=== PATIENT | female | born 1980 | race Caucasian/White ===

== ENCOUNTER → 2017-05-26 | Outpatient (CLI) | payer OTHER ==
[~2017-05-26] MED LIST: B-COMPLEX 100 I30 ML IM; BACTRIM DS TAB1 EACH PO; BYSTOLIC 5 MG5 M1 PO; CELEXA20 MG PO; CLARITIN10 MG PO; CYMBALTA60 MG PO; FLEXERIL PO; HARD NAILS2500 MCG PO; HYDROCHLORTHIAZIDE PO; HYDROCODON-ACE1 EA12 PO; HYDROCODON-ACE1 EAC5 PO; HYDROCODONE-AP1 EAC6 PO; HYDROCODONE-APA1 TA1 PO; LEVAQUIN 500 M500 M2 PO; MEDROLDOSEPACK PO; NABUMETONE 750750 M1 PO; PERCOCET 5-3251 EACH PO; PERCOCET PO; PHENTERMINE H37.5 MG PO; PROTONIX40 M4 PO; TOPAMAX50 MG PO; TRAZODONE HCL100 MG PO; VITAMIN E400 UNI2 PO; ZESTORETIC 20-1 EAC3 PO
--- NOTE | 2017-05-28 08:15 | PAINCON ---
[facility] [address] [place] [address] PAIN MANAGEMENT CONSULTATION Name: RUBIO MATHIAS Room: [facility].#: [id number] Admission: 05/26/17 Attend Phys: Sonia Latham Discharge: Date of : 80 Report #: [id number] THIS REPORT FOR: //name// CC: Alexandra Bhandari The patient is a very pleasant 37-year-old female being treated for chronic SI pain, lumbosacral spondylosis, axial low back pain requiring high risk complex medication management. Last seen in the pain clinic, 03/31/2017. Continued on baseline medication including Percocet 5/325 up to 4 a day. Buccal drug swab at that time was positive for prescribed medications and no others. She returns to pain clinic today. Last visit, I suggested she stop doing the elliptical exercises and start using more treadmill. She was seen to be exacerbating her SI mediated pain with the elliptical motion. Returns to pain clinic today, noting she grudgingly took my advice. After several days, she did note that the elliptical was exacerbating her SI pain. She has continued with the treadmill. She returns to pain clinic today, noting medications generally providing sufficient analgesia to participate in activities of daily living. Continuing ongoing pain that she rates 7 on a VAS, primarily right hip and leg. Otherwise, doing reasonably well on current medication. Does not use tobacco products. PHYSICAL EXAMINATION: GENERAL: She is 5 feet 7 inches, 282 pounds female, BMI elevated at 41.6. VITAL SIGNS: Blood pressure modestly elevated at 144/92, pulse 83, respirations 18. MUSCULOSKELETAL: Rises from chair using armrest. Gait is tandem, some diffuse tenderness over the SI joints. Lower extremity strength symmetric, but she has some subjective weakness in the right leg, I cannot discern this. We reviewed the fact that opiate medications are being used to provide analgesia adequate to support activities of daily living, not attempting to achieve a specific pain score on the 0-10 Visual Analog Scale. The current opiate medications are providing sufficient analgesia to allow the patient to participate in activities of daily living. The patient is not exhibiting any aberrant behavior suggestive of drug diversion. The patient is not having any adverse reactions to medications. The patient is not suffering from daytime somnolence or mental acuity changes. The patient is managing opiate-induced constipation with appropriate wtly-iff-nhzxebo agents and dietary considerations. The patient was counseled on concern for caution with operating a motor vehicle while using opiate medications. A physical exam was performed and the patient's functional status was evaluated. All patients with back pain were advised against the bed rest greater than [address] [place] [address] PAIN MANAGEMENT CONSULTATION Name: RUBIO MATHIAS Room: [facility] MUNA Azevedo#: [id number] Admission: 05/26/17 Attend Phys: Sonia Latham Discharge: Date of : 80 Report #: [id number] days and were advised to return to normal activities. Pain score assessment was noted and the treatment plan was reviewed with the patient. All current medications, both prescribed and OTC were reviewed and reconciled on the electronic medical record. Tobacco screening was accomplished and smoking cessation was advised when indicated. BMI was noted and diet/exercise modification was recommended for all patients following outside normal parameters. I reviewed with the patient today their responsibilities to safeguard prescription medications, reviewed their responsibility to utilize medications only as prescribed by the physician. They are to seek and receive pain medications only from 1 physician group ( [facility]). They are to use 1 pharmacy and keep the clinic informed if they change pharmacies. Their responsibilities include making followup visits in a timely fashion and to avoid abrupt discontinuation of medication usage. Their responsibilities further include bringing their medications (bottles from the pharmacy with residual pills) to the visit for possible confirmation of pill counts and the patient understands it is their responsibility to submit to random drug screens to ensure both that the medications prescribed are present, and that no other controlled substances are present. All prescriptions provided today were generated electronically. ASSESSMENT: Chronic axial low back pain, lumbosacral spondylosis, sacroiliac joint mediated pain requiring high risk complex medication management for her axial low back pain. RECOMMENDATION: Continue Percocet 5/325 up to 4 a day, taken the liberty of writing for 2 months of current medication. <ELECTRONICALLY SIGNED> By: Regan Bhandari DO 05/28/17 0815 0835 [id number] Bhandari DO /nt
== END ==
LOC: M.PC 02:00
DX: M47.897 Other spondylosis, lumbosacral region (principal); M53.3 Sacrococcygeal disorders, not elsewhere classified; Z79.899 Other long term (current) drug therapy

== ENCOUNTER → 2017-07-21 | Outpatient (CLI) | payer OTHER ==
--- NOTE | 2017-07-22 10:21 | PAINCON ---
[facility] [address] [place] [address] PAIN MANAGEMENT CONSULTATION Name: RUBIO MATHIAS Room: [facility].#: [id number] Admission: 07/21/17 Attend Phys: Sonia Latham Discharge: Date of : 80 Report #: [id number] THIS REPORT FOR: //name// CC: Alexandra Bhandari The patient is a very pleasant 37-year-old female, being treated for chronic SI mediated pain, lumbosacral spondylosis without myelopathy nor radiculopathy, requiring complex medication management. Last seen in the pain clinic 05/26/2017. Continued on Percocet 5/325 up to 4 a day. The patient is doing well with this current medication. Enable her to participate in activities of daily living. She works 40 hours a week. She has a [employer] job, working in subsidized housing. Unfortunately, she has had to do a lot of overtime recently, though she does tell me they have employed some new hires and she may get back to normal 40-hour a week. She has continued with a treadmill activity for core strengthening and states that this is helpful, again; however, with the increasing work and overtime, she has had a little less time for physical therapy. Today, we did talk about axial back pain, lumbosacral spondylosis exacerbated with prolonged sitting. The patient may do well with an ergonomic desk (an adjustable height workstation). I did write a prescription for same. She tells me that her HR department has told her that they will be happy to provide her with this if we can provide a prescription which I think is incredibly reasonable. We reviewed the fact that opiate medications are being used to provide analgesia adequate to support activities of daily living, not attempting to achieve a specific pain score on the 0-10 Visual Analog Scale. The current opiate medications are providing sufficient analgesia to allow the patient to participate in activities of daily living. The patient is not exhibiting any aberrant behavior suggestive of drug diversion. The patient is not having any adverse reactions to medications. The patient is not suffering from daytime somnolence or mental acuity changes. The patient is managing opiate-induced constipation with appropriate vwmq-nne-pebplhq agents and dietary considerations. The patient was counseled on concern for caution with operating a motor vehicle while using opiate medications. A physical exam was performed and the patient's functional status was evaluated. All patients with back pain were advised against the bed rest greater than 4 days and were advised to return to normal activities. Pain score assessment was noted and the treatment plan was reviewed with the patient. All current medications, both prescribed and OTC were reviewed and reconciled on the electronic medical record. Tobacco screening was accomplished and smoking cessation was advised when indicated. BMI was noted and diet/[place] [address] PAIN MANAGEMENT CONSULTATION Name: STEWRUBIO FORTUNATO Room: [facility] MUNA Azevedo#: [id number] Admission: 07/21/17 Attend Phys: Sonia Latham Discharge: Date of : 80 Report #: [id number] modification was recommended for all patients following outside normal parameters. I reviewed with the patient today their responsibilities to safeguard prescription medications, reviewed their responsibility to utilize medications only as prescribed by the physician. They are to seek and receive pain medications only from 1 physician group ( [facility]). They are to use 1 pharmacy and keep the clinic informed if they change pharmacies. Their responsibilities include making followup visits in a timely fashion and to avoid abrupt discontinuation of medication usage. Their responsibilities further include bringing their medications (bottles from the pharmacy with residual pills) to the visit for possible confirmation of pill counts and the patient understands it is their responsibility to submit to random drug screens to ensure both that the medications prescribed are present, and that no other controlled substances are present. All prescriptions provided today were generated electronically. PHYSICAL EXAMINATION: Shows a pleasant 37-year-old female. Vital signs are stable as noted in the chart, blood pressure modestly elevated 146/105, pulse 83, and respirations 16. She is following with her general farmer physician this afternoon. She recently bought a new wrist blood pressure monitor. I suggested she take it with her to her general farmer physician's office to get it calibrated. Nonetheless, medication list was reconciled today, the patient takes Bystolic for blood pressure. Suggest that she discuss transient hypertension with her physician today. Modestly obese, 5 feet 9 inches, 280 pounds, BMI is 41 kg/m2. Otherwise, the patient rises from chair using armrest. Diffuse tenderness across the low back. Lower extremity strength is preserved. No radicular symptoms are noted. ASSESSMENT: Lumbosacral spondylosis without myelopathy nor radiculopathy (M47.817), chronic pain syndrome requiring complex medication management. RECOMMENDATION: Continue Percocet 5/325 up to 4 a day. I have taken the liberty of writing for 2 months of current medication. Again, work station considerations for ergonomic desk generated today. Reviewing the chart, it appears it has been greater than 1 year since our last random drug screen, we will make a note in the chart to get a random buccal swab at next visit. Discharged in good and stable condition. <ELECTRONICALLY SIGNED> By: Regan Bhandari DO 07/22/17 1021 0821 [id number] Bhand[facility] DO /lavenre
== END ==
LOC: M.PC 03:33
DX: M47.817 Spondylosis without myelopathy or radiculopathy, lumbosacral region (principal); Z79.899 Other long term (current) drug therapy

== ENCOUNTER → 2017-09-15 | Outpatient (CLI) | payer OTHER ==
--- NOTE | 2017-09-16 09:37 | PAINCON ---
[facility] [address] [place] [address] PAIN MANAGEMENT CONSULTATION Name: NOVA MATHIASANDA FORTUNATO Room: [facility].#: [id number] Admission: 09/15/17 Attend Phys: Sonia Latham Discharge: Date of : 80 Report #: [id number] THIS REPORT FOR: //name// CC: Alexandra Bhandari This is a very pleasant 37-year-old female being treated for chronic SI pain, lumbosacral spondylosis, requiring complex medication management. Last seen in the pain clinic on 07/21/2017. Continued on Percocet 5/325 four a day and occasional Flexeril for spasm. 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 Through attrition, they had lost several employees and she was working 50-60 hours. Fortunately, she tells me today they have hired more employees and she is now back to working 40 hours a week. She did get an ergonomic desk and tells me she spends a good deal of time standing at work. This has been efficacious for her low back. She has resumed some treadmill exercises and overall is doing well. She does not use tobacco products. Physical exam is relatively unchanged from last visit. Very pleasant 37-year-old female, 5 feet 9 inches, 280 pounds, BMI is 42.9 kilograms per meter squared. Blood pressure is 133/85, pulse 86 and respirations are 18. Subjective pain score ranges anywhere from a 2 to 7 on a VAS. It is 3/10 today. The patient rises from chair easily. Gait is tandem. Lower extremity strength is preserved. Diffuse tenderness across the low back. Lizzy and Gaenslen's test deferred today. They have classically been positive. We reviewed the fact that opiate medications are being used to provide analgesia adequate to support activities of daily living, not attempting to achieve a specific pain score on the 0-10 Visual Analog Scale. The current opiate medications are providing sufficient analgesia to allow the patient to participate in activities of daily living. The patient is not exhibiting any aberrant behavior suggestive of drug diversion. The patient is not having any adverse reactions to medications. The patient is not suffering from daytime somnolence or mental acuity changes. The patient is managing opiate-induced constipation with appropriate dgii-que-bjvuftn agents and dietary considerations. The patient was counseled on concern for caution with operating a motor vehicle while using opiate medications. A physical exam was performed and the patient's functional status was evaluated. All patients with back pain were advised against the bed rest greater than 4 days and were advised to return to normal activities. Pain score assessment was noted and the treatment plan was reviewed with the patient. All current medications, both prescribed and OTC [place] [address] PAIN MANAGEMENT CONSULTATION Name: STEWRUBIO FORTUNATO Room: [facility] MUNA Azevedo#: [id number] Admission: 09/15/17 Attend Phys: Sonia Latham Discharge: Date of : 80 Report #: [id number] electronic medical record. Tobacco screening was accomplished and smoking cessation was advised when indicated. BMI was noted and diet/exercise modification was recommended for all patients following outside normal parameters. I reviewed with the patient today their responsibilities to safeguard prescription medications, reviewed their responsibility to utilize medications only as prescribed by the physician. They are to seek and receive pain medications only from 1 physician group ( [facility]). They are to use 1 pharmacy and keep the clinic informed if they change pharmacies. Their responsibilities include making followup visits in a timely fashion and to avoid abrupt discontinuation of medication usage. Their responsibilities further include bringing their medications (bottles from the pharmacy with residual pills) to the visit for possible confirmation of pill counts and the patient understands it is their responsibility to submit to random drug screens to ensure both that the medications prescribed are present, and that no other controlled substances are present. All prescriptions provided today were generated electronically. ASSESSMENT: Chronic axial back pain, lumbar spondylosis, SI mediated pain, complex medication management. The patient has been remarkably stable on baseline medication. We have done multiple SI joint injections for exacerbation of pain. Had referred the patient for SI percutaneous fusion. This was denied by her insurance company. We had sought authorization for radiofrequency neurolysis innervating the SI joint, this too was denied by her insurance payer. RECOMMENDATION: Continue Percocet 5/325 up to 4 a day, taken the liberty of writing for 2 months of current medication. We will repeat a buccal random drug swab today. No aberrant behavior suggestive of drug diversion, simply complying with our opiate consent to treat contract. Prior studies have always been positive for prescribed medications and no others. Next, we will renew Flexeril today. I will write for 10 mg tablet b.i.d., 60 tablets with 1 refill. She uses this on a nondaily p.r.n. basis. Continue core therapy treadmill exercises and core strengthening. Continue use of ergonomic desk. Follow up in 2 months for reevaluation. We did discuss that I will be leaving the practice and we will endeavor to find another prescribing physician. Again, the patient has always been timely on her medications and not sought any early refills. 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 She has eschewed nicotine products, escalation in opiate analgesics. She has continued with exercise, core strengthening and endeavors to mitigate pain. <ELECTRONICALLY SIGNED> By: Regan Bhandari DO 09/16/17 0937 0824 [id number] Bhandari DO /nt
== END ==
LOC: M.PC 04:34
DX: M47.897 Other spondylosis, lumbosacral region (principal); G89.29 Other chronic pain; Z79.899 Other long term (current) drug therapy

== ENCOUNTER → 2017-11-10 | Outpatient (CLI) | payer OTHER ==
--- NOTE | 2017-11-11 07:56 | PAINCON ---
[address] [address] PAIN MANAGEMENT CONSULTATION Name: STEWRUBIO FORTUNATO Room: [facility].#: [id number] Admission: 11/10/17 Attend Phys: oSnia Latham Discharge: Date of : 80 Report #: [id number] THIS REPORT FOR: //name// CC: Alexandra Bhandari The patient is a very pleasant 37-year-old female typically treated for chronic SI mediated pain, lumbosacral spondylosis without myelopathy, requiring complex medication management. Last seen in the pain clinic on 09/15/2017. Random drug screen at that time was positive for prescribed medication including oxycodone and Flexeril. She does use phentermine for weight loss. She returns to the pain clinic today. She has had a little change in her symptoms. She was actually seen for prolonged visit today from 8:00 a.m. to 8:25. Greater than 50% of this 25-minute visit was spent counseling the patient. She tells me that without obvious antecedent trauma and overuse, she has had several episodes of acute exacerbation of pain in the right low back and buttock, feels like an "electric" type pain and it has been episodic. She rates the pain as 7 on a VAS. It seems to be quieting down a little over the last few days. PHYSICAL EXAMINATION: Shows 5 feet 9 inches, 290 pounds female, BMI is 42.9 kilograms per meter squared. Blood pressure is modestly elevated at 146/90, pulse 82 and respirations 18. Rises from chair using arm rest. Gait is tandem. Very tender over the right SI with a positive Lizzy test on this side. Left is actually unremarkable. Lower extremity strength is symmetric. Straight leg raise is negative. No skin changes noted. We reviewed the fact that opiate medications are being used to provide analgesia adequate to support activities of daily living, not attempting to achieve a specific pain score on the 0-10 Visual Analog Scale. The current opiate medications are providing sufficient analgesia to allow the patient to participate in activities of daily living. The patient is not exhibiting any aberrant behavior suggestive of drug diversion. The patient is not having any adverse reactions to medications. The patient is not suffering from daytime somnolence or mental acuity changes. The patient is managing opiate-induced constipation with appropriate gimp-tno-rlopmgn agents and dietary considerations. The patient was counseled on concern for caution with operating a motor vehicle while using opiate medications. A physical exam was performed and the patient's functional status was evaluated. All patients with back pain were advised against the bed rest greater than 4 days and were advised to return to normal activities. Pain score assessment was noted and the treatment plan was reviewed with the patient. All current medications, both prescribed and OTC were reviewed and reconciled on the electronic medical record. Tobacco screening [place] [address] PAIN MANAGEMENT CONSULTATION Name: STEWRUBIO FORTUNATO Room: [facility] MUNA Azevedo#: [id number] Admission: 11/10/17 Attend Phys: Sonia Latham Discharge: Date of : 80 Report #: [id number] cessation was advised when indicated. BMI was noted and diet/exercise modification was recommended for all patients following outside normal parameters. I reviewed with the patient today their responsibilities to safeguard prescription medications, reviewed their responsibility to utilize medications only as prescribed by the physician. They are to seek and receive pain medications only from 1 physician group ( [facility]). They are to use 1 pharmacy and keep the clinic informed if they change pharmacies. Their responsibilities include making followup visits in a timely fashion and to avoid abrupt discontinuation of medication usage. Their responsibilities further include bringing their medications (bottles from the pharmacy with residual pills) to the visit for possible confirmation of pill counts and the patient understands it is their responsibility to submit to random drug screens to ensure both that the medications prescribed are present, and that no other controlled substances are present. All prescriptions provided today were generated electronically. ASSESSMENT: Acute axial back pain, lumbosacral spondylosis without myelopathy and right SI mediated pain. RECOMMENDATION: We discussed therapeutic options at length. Initially, the patient did well with SI joint injections though did have dwindling efficacy over time. I did suggest if pain becomes problematic and it does not resolve that she may consider targeted SI joint injection if indicated. The patient to her credit has continued with treadmill exercise. We pointed out that the elliptical may actually aggravate some mechanical motion in the SI joint. I talked about core strengthening exercises ongoing. We would like to continue baseline narcotic, Percocet 5/325 four a day. Even taking a maximum dose, she is taking approximately 30 milligram morphine equivalent, she is in a relatively low risk profile group. I have taken the liberty of writing for two months of current medication. Follow up with Dr. Spring. Again the patient has been remarkably stable on medication and showed no problems with daytime somnolence, mental acuity changes or constipation. No aberrant behavior suggestive of drug diversion. Discharged in good and stable condition after moderately prolonged visit today approximately 25 minutes spent counseling with the patient, reviewing therapeutic options, encouraging her to continue with weight loss and core strengthening activity. <ELECTRONICALLY SIGNED> By: Regan Bhandari DO 11/11/17 0756 1324 [id number] Bhandari DO /laverne
== END ==
LOC: M.PC 04:11
DX: M47.817 Spondylosis without myelopathy or radiculopathy, lumbosacral region (principal); M54.5 Low back pain; M53.3 Sacrococcygeal disorders, not elsewhere classified; Z79.899 Other long term (current) drug therapy

== ENCOUNTER → 2018-02-01 | Outpatient (CLI) | payer OTHER ==
--- NOTE | 2018-03-07 10:00 | PAINCON ---
[address] [address] PAIN MANAGEMENT CONSULTATION Name: STEWRUBIO FORTUNATO Room: [facility].#: [id number] Admission: 02/01/18 Attend Phys: Princess Spring MD Discharge: Date of : 80 Report #: [id number] THIS REPORT FOR: //name// CC: Alexandra Spring DATE OF SERVICE: 02/01/2018 CHIEF COMPLAINT: History of sacroiliac joint dysfunction. HISTORY OF PRESENT ILLNESS: The patient is a 37-year-old female who has been followed in the pain clinic by Dr. Regan Bhandari. This is my first visit with the patient. She has a history of sacroiliac joint dysfunction. She has been treated with medications for quite some time. This dates back to 07/2015. She finds that Percocet, Flexeril, or efficacious. The patient had considered fusion of the SI joint by Jeff. At this juncture, her insurance company has declined. States that it was an experimental procedure. She is contemplating getting a new insurance carrier in the near future. Hopefully, this will be covered. She has pain, which radiates down into her right leg. Oftentimes, it can be 6-7. At this juncture, it is a 3-4. Normally, it is about a 4-5. She has not had any trauma. No problem with her bowel or bladder function. No problem with her medications. Keeps her medication in a guarded area. She is aware that opioid medications can be problematic and one can develop addiction to these medications. Also, long-term use can cause development of tolerance with less effectiveness from the same dose. Overall, things are going reasonably well. She would like to continue with her medications and has returned today for renewal of these medications. Has a history of sacroiliac joint mediated pain in the lumbosacral and lumbosacral spondylosis without myelopathy. She has found that these complex medical disk complex medication that complex medical management is efficacious. ALLERGIES: No known drug allergies. CURRENT MEDICATIONS: Biotin 2500 mcg daily, Flexeril 10 mg t.i.d. p.r.n., Claritin 10 mg daily, Bystolic 10 mg daily, Percocet 5/325 mg every 6 hours p.r.n. multivitamin, Vitamin E, multivitamin B complex injection, trazodone 100 mg, phentermine 37.5 hydrochlorothiazide PAST MEDICAL HISTORY: Asthma, hypertension, chronic sleep disturbance, sacroiliac joint dysfunction, history of lumbar radiculopathy, kidney stones. 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 REVIEW OF SYSTEMS: Generally good health, fatigue, weakness, asthma, kidney stones, joint disease, muscle weakness, back pain, difficulty walking, [place] [address] PAIN MANAGEMENT CONSULTATION Name: STEWRUBIO FORTUNATO Room: [facility].#: [id number] Admission: 02/01/18 Attend Phys: Princess Spring MD Discharge: Date of : 80 Report #: [id number] nervousness/tingling sensation. LABORATORY DATA: Exam of the lumbar spine dated 04/23/2013, small central disk extrusion at L5-S1, which is not compressing the adjacent nerve roots. Small annular tear at the posterior right side L3-L4. Small disk protrusion at L4-L5, probably not significantly difficult pain. PAIN CLINIC ASSESSMENT: 1. Osteoarthritis/rheumatoid arthritis. The patient is not being treated for osteoarthritis or rheumatoid arthritis. 2. Height 5 feet 9 inches, weight 302 pounds, BMI is 44. 3. Pain. PHYSICAL EXAMINATION: 1. Blood pressure 143/99, heart rate 79, respiratory rate 16, room air saturation 98%, temperature 98.5. Pain score 3/10 for pain. 2. Fall risk. The patient has not fallen in the last 3 months. 3. Blood thinner. The patient is not on a blood thinning medication. 4. Hypertension. The patient is being treated for hypertension. 5. Opioid therapy greater than 6 weeks. The patient is receiving medication from one source, the pain clinic. 6. Risk assessment tool, low for opioid use. 7. Functional assessment tool. 8. Recreational drug use. The patient denies use of recreational drugs. 9. Tobacco: The patient denies use of tobacco. 10. Alcohol. The patient drinks alcohol may be on a monthly basis. PHYSICAL EXAMINATION: GENERAL: The patient is a well-developed, well-nourished white female. VITAL SIGNS: Slightly obese. Her affect is appropriate. Speech is fluent. HEENT: Normocephalic, atraumatic. Extraocular eye muscles intact. Sclerae nonicteric. Mucous membranes are moist. NECK: Without JVD or adenopathy. HEART: Regular rate. S1, S2. LUNGS: Clear to auscultation without rhonchi or rales. ABDOMEN: Protuberant without organomegaly. MUSCULOSKELETAL: Upper extremity muscle strength is judged to be 5/5 for the major muscle groups in the upper extremity. Lower extremity muscle strength 5/5. The patient has pain and discomfort in the lower portion of her back and the right SI joint area with pain that radiates to the lateral side and down into her buttocks. IMPRESSION: Chronic low back pain with bilateral hip discomfort, history of sacroiliitis. RECOMMENDATIONS: We discussed treatment options with the patient. We will [facility] [address] [facility] [place] [address] PAIN MANAGEMENT CONSULTATION Name: RUBIO MATHIAS Room: [facility]#: [id number] Admission: 02/01/18 Attend Phys: Princess Spring MD Discharge: Date of : 80 Report #: [id number] continue with her current medications. A script for oxycodone 5/325 one p.o. q.4-6h has been written. Total of 120 tablets. The patient who has been given a script also for Flexeril 1 p.o. b.i.d. p.r.n. She will call us if she has any problems. We would like to thank you for letting us participate in her care. We hope she continues to improve. <ELECTRONICALLY SIGNED> By: Princess Spring MD 03/07/18 [id number]. Clifton Spring MD /[facility]
== END ==
LOC: M.PC 04:46
DX: M54.5 Low back pain (principal); M25.551 Pain in right hip; M25.552 Pain in left hip; M53.3 Sacrococcygeal disorders, not elsewhere classified; G89.29 Other chronic pain; Z79.899 Other long term (current) drug therapy

== ENCOUNTER → 2018-04-26 | Outpatient (CLI) | payer OTHER ==
[~2018-04-26] MED LIST changes: -BYSTOLIC 5 MG5 M1 PO; +BYSTOLIC10 MG PO; +MOBIC15 MG PO
--- NOTE | 2018-04-29 17:20 | PAINCON ---
[address] [address] PAIN MANAGEMENT CONSULTATION Name: STEWRUBIO FORTUNATO Room: [facility].#: [id number] Admission: 04/26/18 Attend Phys: Princess Spring MD Discharge: Date of : 80 Report #: [id number] THIS REPORT FOR: //name// CC: Alexandra Spring DATE OF SERVICE: 04/26/2018 REASON FOR ADMISSION: Low back and bilateral hip pain. HISTORY: The patient is a 38-year-old female who has been followed in the Pain Clinic. As you recall, she has chronic pain involving her back. Has a history of sacroiliac joint dysfunction. She has been treated with medications for quite some time. Her problems dates back to 2015. She finds the Percocet and Flexeril are efficacious. Feels that the Percocet is less helpful at this juncture. After taking the medication a few hours later, she notes return of her pain and discomfort. She works for the [employer] department. Notes that they have done a number of things that make her pain more palatable. She has adjustable work station. She is able to get up and walk and move during the course of day. She denies any new trauma since we saw her last. Denies any bowel or bladder dysfunction. She is contemplating moving in the next few weeks. Notes that, that will increase her pain and discomfort. She is not taking a nonsteroidal anti-inflammatory medication on a regular basis. She feels that her medications might be somewhat improved with a change in her oxycodone dosing regimen. ALLERGIES: No known drug allergies. CURRENT MEDICATIONS: Biotin 2500 mcg daily, Flexeril 10 mg t.i.d. p.r.n., Claritin 10 mg, Bystolic 10 mg daily, Percocet 5/325 one p.o. q.6h., multivitamin E, multivitamin B complex injection, tramadol 100 mg, phentermine 37 mg, hydrochlorothiazide. PAIN CLINIC ASSESSMENT/PQRS: 1. Osteoarthritis/rheumatoid arthritis. The patient has not been treated for rheumatoid arthritis or osteoarthritis. 2. Height 5 feet 9 inches, weight 303 pounds, BMI is 44. 3. Vital signs: Blood pressure 157/83, pulse 88, respiratory rate 16, room air saturation 98%, and temperature 98.6. 4. Pain intensity, 7/10. 5. Fall history. The patient has not fallen in the last 3 months. 6. Blood thinner. The patient is not on a blood thinning medication. 7. Hypertension. The patient is not being treated for hypertension. 8. Risk assessment tool, low for opioid use. 9. [place] [address] PAIN MANAGEMENT CONSULTATION Name: STEWRUBIO FORTUNATO Room: [facility]#: [id number] Admission: 04/26/18 Attend Phys: Princess Spring MD Discharge: Date of : 80 Report #: [id number] 10. Recreational drug use. The patient denies use of recreational drugs. 11. Tobacco: The patient denies use of tobacco. 12. Alcohol. The patient drinks alcohol on a monthly basis. PHYSICAL EXAMINATION: GENERAL: The patient is a well-developed and well-nourished white female. Appears her stated age. She is slightly obese. Her affect is appropriate. Speech is slow. HEENT: Normocephalic and atraumatic. Extraocular eye muscles intact. Sclerae nonicteric. Mucous membranes are moist. NECK: Without adenopathy or JVD. HEART: Regular rate. S1, S2. LUNGS: Clear to auscultation without rhonchi or rales. ABDOMEN: Protuberant without organomegaly. Bowel sounds present. MUSCULOSKELETAL: Upper muscle strength judged to be 5/5 for the major muscle groups in the upper extremity. The patient has some pain and discomfort in the lower portion of her back with pain that radiates down into the SI joint areas with pain into the lateral side down into her buttocks. IMPRESSION: 1. Chronic low back pain with bilateral hip discomfort. 2. History of sacroiliitis. RECOMMENDATIONS: We discussed treatment options with the patient. Risk and benefits of opioid medications were discussed. We explained to the patient that 72,000 people as a result of overdoses last year. The patient is aware that opioid medications can become less effective secondary to tolerance. She also is aware that the patient can suffer an addiction with use of opioid medications. Overall, she feels that things are going reasonably well. She remains gainfully employed. She finds that her medications are helpful and she would like to continue with their use. We will consider possibility of increase in her oxycodone to 7.5 mg in the future should her pain continue to be problematic. We will have her try a nonsteroidal anti-inflammatory medication on a regular basis. A script for Oriana has been written. She will call us if she has any concerns. We would like to thank you for letting us participate in her care. We hope she continues to improve. <ELECTRONICALLY SIGNED> By: Princess Spring MD 04/29/18 1720 [id number]. Clifton Spring MD /nt
== END ==
LOC: M.PC 05:21
DX: M54.5 Low back pain (principal); M25.551 Pain in right hip; M25.552 Pain in left hip; M53.3 Sacrococcygeal disorders, not elsewhere classified

== ENCOUNTER → 2018-06-21 | Outpatient (CLI) | payer OTHER ==
--- NOTE | ~2018-06-21 | PAINCON ---
[address] [address] PAIN MANAGEMENT CONSULTATION Name: RUBIO MATHIAS FORTUNATO Room: [facility]..#: [id number] Admission: 06/21/18 Attend Phys: Princess Spring MD Discharge: Date of : 80 Report #: [id number] THIS REPORT FOR: //name// CC: Alexandra Spring DATE OF SERVICE: 06/21/2018 CHIEF COMPLAINT: Here for medication renewal. "I moved to [place] in a new house. Things are going well." HISTORY: The patient is a 38-year-old female who has been followed in the Pain Clinic because of chronic pain involving her back. She has a history of sacroiliac joint dysfunction. She has been treated with opioid medications. She finds that these medications are helpful. She remains gainfully employed. She recently moved and changed homes. She lives in [place] at this juncture. Overall, things have gone reasonably well with her move. Has had no real problem with her back. 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 She continues to work with an adjustable work station, which is helpful. Notes that her pain is 50-60% improved with her current medical regimen. She is using meloxicam, a nonsteroidal anti-inflammatory medication, feels that the medication is beneficial. Does not have any problems with his GI at this point. ALLERGIES: No known drug allergies. CURRENT MEDICATIONS: Biotin 250 mcg daily, Flexeril 10 mg t.i.d., Claritin 10 mg, Bystolic 10 mg daily, Percocet 5/325 one p.o. q.6h. p.r.n., vitamin E, multivitamin B complex injection, tramadol 100 mg, phentermine 37, hydrochlorothiazide, and Meloxicam 15 mg. PAIN CLINIC ASSESSMENT/PQRS: 1. Osteoarthritis/rheumatoid arthritis. The patient is not being treated for osteoarthritis or rheumatoid arthritis. 2. Height 5 feet 9 inches, weight 306 pounds, BMI is 45.2. 3. Blood pressure 113/64, heart rate 86, respiratory rate 16, room air saturation 96%, temperature 98.5. 4. Pain intensity 10/31. 5. Fall history: The patient has not fallen in the last 3 months. 6. Blood thinner. The patient is not on a blood thinning medication. 7. Hypertension. The patient is not being treated for hypertension. 8. Risk assessment tool, low for opioid use. 9. Functional assessment tool. 10. Recreational drug use. The patient denies use of recreational drugs. 11. Tobacco: The [place] [address] PAIN MANAGEMENT CONSULTATION Name: RUBIO MATHIAS [facility] [id number] Admission: 06/21/18 Attend Phys: Princess Spring MD Discharge: Date of : 80 Report #: [id number] 12. Alcohol: The patient denies drinking alcohol more than on a monthly basis. PHYSICAL EXAMINATION: GENERAL: The patient is a well-developed, well-nourished white female, somewhat obese. She is appropriate. Speech is fluent. HEENT: Normocephalic and atraumatic. Extraocular muscles intact. Sclerae nonicteric. Mucous membranes are moist. NECK: Without adenopathy or JVD. HEART: Regular rate. S1, S2. LUNGS: Clear to auscultation without rhonchi or rales. ABDOMEN: Nontender, protuberant. Bowel sounds present. MUSCULOSKELETAL: Judged to be 5/5 for the major muscle groups in the upper extremity without sensory changes. The patient has pain and discomfort in lower portion of her back with some pain down to the SI joint areas. Muscle straight overall lower back area is 5/5. IMPRESSION: 1. Chronic low back pain with bilateral hip discomfort. 2. History of sacroiliitis. RECOMMENDATIONS: We discussed treatment options with the patient. She feels that her current medical regimen of meloxicam and oxycodone with Flexeril medications are helpful. She was able to move her home. She did not have significant problems. I feel that the nonsteroidal anti-inflammatory medication has been of benefit. She will continue to monitor her stomach for pain and discomfort, which could arise as a result of use of nonsteroidal anti-inflammatory medications. We would like to thank you for letting us participate in her care. We hope she continues to improve. By: [id number]. Clifton Spring MD /[facility]
== END ==
LOC: M.PC 04:53
DX: M54.5 Low back pain (principal); G89.29 Other chronic pain; M25.551 Pain in right hip; M25.552 Pain in left hip; Z79.899 Other long term (current) drug therapy; Z87.39 Personal history of other diseases of the musculoskeletal system and connective tissue

== ENCOUNTER → 2018-09-13 | Outpatient (CLI) | payer OTHER ==
--- NOTE | 2018-09-15 12:05 | PAINCON ---
[facility] [address] [place] [address] PAIN MANAGEMENT CONSULTATION Name: RUBIO MATHIAS FORTUNATO Room: [facility].#: [id number] Admission: 09/13/18 Attend Phys: Princess Spring MD Discharge: Date of : 80 Report #: [id number] THIS REPORT FOR: //name// CC: Alexandra Spring DATE OF SERVICE: 09/13/2018 CHIEF COMPLAINT: Here for renewal of medications. HISTORY OF PRESENT ILLNESS: The patient is a 38-year-old female who has been followed in the pain clinic because of chronic pain. Has some pain in her back. Has had pain in the low back secondary to SI joint dysfunction. Continues to work. Rates her pain as a 7/10 today. The patient has moved. She moved to [place]. Has found that helpful. Pain in the low back area involves both hips. Right leg is more problematic than the left. Feels that her medications overall working reasonably well. Feels that the muscle relaxant, nonsteroidal anti-inflammatory medication and the oxycodone continue to be beneficial. Notes increased discomfort with walking, sitting, standing, going from sitting to a standing, lifting and bending. Notes that rest and her medications are helpful. Overall, feels that things are about 50% improved with her medications. She would like to continue with her medications. ALLERGIES: No known drug allergies. CURRENT MEDICATIONS: Biotin 250 mcg daily, Flexeril 10 mg t.i.d., Claritin 10 mg, Bystolic 10 mg daily, Percocet 5/325 one p.o. every 4-6 hours p.r.n., Vitamin E, multivitamin, B complex injection, tramadol, phentermine 37.5, hydrochlorothiazide, and Meloxicam 15 mg. PAIN CLINIC ASSESSMENT/PQRS: 1. Osteoarthritis/rheumatoid arthritis. The patient is not being treated for osteoarthritis or rheumatoid arthritis. 2. Height 5 feet 9 inches, weight 308 pounds, BMI 45. 3. Vital Signs: Blood pressure 186/78, respiratory rate 16, room air saturation 99%, temperature 98.4. 4. Pain intensity score 7/10. 5. Fall history: The patient has not fallen in the last 3 months. 6. Blood thinner, the patient is not on a blood thinning medication. 7. Hypertension. The patient is not being treated for hypertension. 8. Risk assessment tool, low for opioid use. 9. Functional assessment tool. 10. Recreational drug use. The patient denies use of recreational drugs. 11. Tobacco: The patient denies use of tobacco. 12. Alcohol: The patient denies [place] [address] PAIN MANAGEMENT CONSULTATION Name: RUBIO MATHIAS [facility] [id number] Admission: 09/13/18 Attend Phys: Princess Spring MD Discharge: Date of : 80 Report #: [id number] PHYSICAL EXAMINATION: GENERAL: The patient is a well-developed, well-nourished white female. Appears her stated age. She is alert and oriented x 3. Her affect is appropriate. Speech is slow. HEENT: Normocephalic, atraumatic. Extraocular eye muscles intact. Sclerae nonicteric. Mucous membranes are moist. NECK: Without adenopathy or JVD. ABDOMEN: Bowel sounds present. MUSCULOSKELETAL: Upper extremities judged to be 5/5 for the major muscle groups in the upper extremity, but there are no sensory changes. The patient has pain and discomfort in the lower portion of her back with pain that radiates down into the low back areas of the left as well as the right side in the SI joint area. Overall, muscle strength 5/5 for the major muscle groups in the upper and lower extremity. IMPRESSION: 1. Chronic low back pain with bilateral hip pain. 2. History of sacroiliitis. RECOMMENDATIONS: At this juncture, we will continue with her medications. A script for her medications of oxycodone 5 mg 1 p.o. q.i.d. have been written for the next 3 months. The patient also has a script for Flexeril 10 mg 1 p.o. b.i.d. and Meloxicam one tablet daily. She will call us if she has any concerns. We would like to thank you for letting us participate in her care. We hope she continues to improve. <ELECTRONICALLY SIGNED> By: Princess Spring MD 09/15/18 1205 [id number]. Clifton Spring MD /nt
== END ==
LOC: M.PC 07-19 08:00
DX: G89.29 Other chronic pain (principal); M25.551 Pain in right hip; M25.552 Pain in left hip; M19.90 Unspecified osteoarthritis, unspecified site; Z79.899 Other long term (current) drug therapy

== ENCOUNTER → 2018-12-06 | Outpatient (CLI) | payer OTHER ==
--- NOTE | ~2018-12-06 | PAINCON ---
[facility] [address] [place] [address] PAIN MANAGEMENT CONSULTATION Name: RUBIO MATHIAS FORTUNATO Room: [facility].#: [id number] Admission: 12/06/18 Attend Phys: Princess Spring MD Discharge: Date of : 80 Report #: [id number] THIS REPORT FOR: //name// CC: Alexandra Spring DATE OF SERVICE: 12/06/2018 CHIEF COMPLAINT: "Here for medical management. HISTORY: The patient is a 38-year-old female who has been followed in the pain clinic because of chronic pain. She has chronic back pain. Today, her pain is a 6. It often ranges between 5-6. She has a history of back pain as well as SI joint dysfunction. She feels that her medications are helpful. She is taking them as prescribed. 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 Overall, things are going reasonably well. She is taking her medications as prescribed. She has had no complications. She notes that pain improves with rest and medications and increases with walking, sitting, standing, going from a sitting to standing, lifting. Overall, her pain is about the same. There are no significant changes. She feels that her Percocet, Flexeril, and meloxicam are beneficial. She feels she gets about 50% improvement with her medicines. ALLERGIES: No known drug allergies. CURRENT MEDICATIONS: Biotin 250 mcg daily, Flexeril 10 mg t.i.d., Claritin 10 mg, Bystolic 10 mg daily, Percocet 5/325 q.4 hours p.r.n., vitamin E, multivitamins, B complex injection, tramadol, phentermine 37.5, hydrochlorothiazide, meloxicam 15 mg. PAIN CLINIC ASSESSMENT/PQRS: 1. Osteoarthritis/rheumatoid arthritis. The patient is not being treated for osteoarthritis or rheumatoid arthritis. 2. Height 5 feet 9 inches, weight 296 pounds, BMI is 43. 3. Vital Signs: Blood pressure 146/85, heart rate 84, respiratory rate 16, room air saturation 98%, temperature 97.5. 4. Pain intensity 10. 5. Fall history: The patient has not fallen in the last 3 months. 6. Blood thinner: The patient is not on a blood thinning medication. 7. Hypertension. The patient is not being treated for hypertension. 8. Risk assessment tool, low for opioids. 9. Functional assessment tool. 10. Recreational drug use. The patient denies use of recreational drugs. 11. Tobacco: The patient denies use of tobacco. 12. Alcohol. The patient [place] [address] PAIN MANAGEMENT CONSULTATION Name: STEWRUBIO FORTUNATO Room: [facility]#: [id number] Admission: 12/06/18 Attend Phys: Princess Spring MD Discharge: Date of : 80 Report #: [id number] PHYSICAL EXAMINATION: GENERAL: The patient is a well-developed, well-nourished white female. She appears her stated age. She is alert and oriented x 3. Her affect is appropriate. Speech is fluent. HEENT: Normocephalic, atraumatic. Extraocular eye muscles are intact. Sclerae nonicteric. Mucous membranes are moist. HEART: Regular rate. ABDOMEN: Protuberant. Bowel sounds are present. EXTREMITIES: Upper extremity muscle strength is judged to be 5/5 for the major muscle groups in the upper extremity. Lower extremity, the patient has some pain and discomfort in the back. Has pain in her hips bilaterally involving the SI joint areas. Overall, muscle strength in the lower extremity, 5/5 for the major muscle groups. IMPRESSION: 1. Chronic low back pain and bilateral hip pain. 2. History of sacroiliac joint pain and sacroiliitis. RECOMMENDATIONS: We discussed treatment options with the patient. At this juncture, we will continue with her medications. She feels that the Percocet medication is working reasonably well. Flexeril helps with the muscle spasms. She does not have any problems with her GI tract associated with nonsteroidal anti-inflammatory medications. She will return to the pain clinic as needed. We have had discussions regarding the use of opioid medications and their risks and benefits. The patient is aware that prolonged use of opioid medications can become less effective over time. She is aware that some people have had problems with opioid medications and developed addiction. She does not feel that those are problems which she is encountering. She would like to continue with her medications. A script for her medications has been written. She will continue with Percocet 5/325 one p.o. 4 times daily, Flexeril 10 mg 1 p.o. b.i.d. and a script for Mobic 15 mg 1 p.o. daily have been written. She will call us if she has any concerns. We would like to thank you for letting us participate in her care. We hope she continues to improve. By: [id number]. Clifton Spring MD /[facility]
== END ==
LOC: M.PC 05:09
DX: Z76.0 Encounter for issue of repeat prescription (principal); M54.9 Dorsalgia, unspecified; M25.551 Pain in right hip; M25.552 Pain in left hip; G89.29 Other chronic pain; Z79.899 Other long term (current) drug therapy

== ENCOUNTER → 2019-02-28 | Outpatient (CLI) | payer OTHER ==
--- NOTE | 2019-03-15 09:09 | PAINCON ---
[address] [address] PAIN MANAGEMENT CONSULTATION Name: RUBIO MATHIAS FORTUNATO Room: [facility].#: [id number] Admission: 02/28/19 Attend Phys: Princess Spring MD Discharge: Date of : 80 Report #: [id number] THIS REPORT FOR: //name// CC: Alexandra Spring CHIEF COMPLAINT: Here for medication renewal. HISTORY: The patient is a 38-year-old female who has been followed in the pain clinic. As you recall, she has chronic pain involving her low back as well as bilateral hip pain. She has returned today because of the pain. She rates it as 4/10. It ranges between 5 and 6, has a history of sacroiliac joint dysfunction. She finds that her medications continue to be helpful. She has changed jobs. 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 She works for [employer]. She feels overall that things are improving. She has had no complications with her medications. She is using the medications as prescribed. Notes some increased discomfort with walking, sitting, standing, going from a sitting to standing and lifting. She denies any problems with the medications. Feels that she is having at least 50% improvement in her condition because of the medications. She notes that the cooler weather has slowed her down. She would like to have her medications renewed. ALLERGIES: No known drug allergies. CURRENT MEDICATIONS: Biotin 250 mcg daily, Flexeril 10 mg t.i.d., Claritin 10 mg, Bystolic 10 mg, Percocet 5/325, vitamin E, multivitamins, B complex injection, tramadol, phentermine 37.5, hydrochlorothiazide, and Meloxicam 15 mg. PAIN CLINIC ASSESSMENT/PQRS: 1. The patient is not being treated for osteoarthritis or rheumatoid arthritis. Does have some SI joint dysfunction history. 2. Height 5 feet 9 inches, weight 380 pounds, BMI is 46. 3. Vital signs: Blood pressure 139/92, heart rate 72, respiratory rate 16, room air saturation 96%, temperature 98.3. 4. Pain intensity 08/31. 5. Fall history: The patient has not fallen in the last 3 months. 6. Blood thinner. The patient is not on a blood thinning medication. 7. Hypertension. The patient is not being treated for hypertension. 8. Risk assessment tool, low for opioid use. 9. Functional assessment tool. 10. Recreational drug use. The patient denies. 11. Tobacco: The patient denies use of tobacco. 12. Alcohol: The patient rarely uses alcoholic beverages. PHYSICAL EXAMINATION: GENERAL: The patient is a well-developed, well-nourished white female. Appears her stated age. She is alert, oriented x 3. [place] [address] PAIN MANAGEMENT CONSULTATION Name: RUBIO MATHIAS FORTUNATO Room: [facility]#: [id number] Admission: 02/28/19 Attend Phys: Princess Spring MD Discharge: Date of : 80 Report #: [id number] is fluent. HEENT: Normocephalic, atraumatic. Extraocular eye muscles intact. Sclerae nonicteric. Mucous membranes are moist. NECK: Without adenopathy or JVD. HEART: Regular rate. ABDOMEN: Protuberant. Bowel sounds present. EXTREMITIES: Upper extremity muscle strength judged to be 5/5 for the major muscle groups in the upper extremity. Lower extremity, the patient has pain and discomfort in her back. Has pain in her hips bilaterally involving the SI joint areas. Muscle strength overall is 5/5 for the major muscle groups. IMPRESSION: 1. Chronic low back pain and bilateral hip pain. 2. History of sacroiliac joint pain with sacroiliitis. RECOMMENDATIONS: We discussed treatment options with the patient. At this juncture, we will continue with her medications. She finds the medications ____ working well. Over the last 3 months, she has had no complications or problems. She is aware that opioid medications can be less effective as time goes on. She continues to use nonsteroidal anti-inflammatory medications without any GI discomfort. The patient is aware that addiction can result from use of opioids. She has not shown any addictive behavior. She would like to continue with her medications. A script for her medications of Percocet 5/325 one p.o. q.i.d. has been rewritten. She also continue with Flexeril for muscle spasms. She will use Mobic. She will continue to monitor GI tract for signs or problems with nonsteroidal anti-inflammatory medications. We would like to thank you for letting us participate in her care. We hope she continues to improve. <ELECTRONICALLY SIGNED> By: Princess Spring MD 03/15/19 0909 [id number]. Clifton Spring MD /nt
== END ==
LOC: M.PC 05:12
DX: Z76.0 Encounter for issue of repeat prescription (principal); M54.5 Low back pain; M25.551 Pain in right hip; M25.552 Pain in left hip; G89.29 Other chronic pain; Z79.899 Other long term (current) drug therapy

== ENCOUNTER → 2019-05-23 | Outpatient (CLI) | payer OTHER ==
--- NOTE | ~2019-05-23 | PAINCON ---
[address] [address] PAIN MANAGEMENT CONSULTATION Name: RUBIO MATHIAS Room: [facility].#: [id number] Admission: 05/23/19 Attend Phys: Princess Spring MD Discharge: Date of : 80 Report #: [id number] THIS REPORT FOR: //name// CC: Alexandra Spring DATE OF SERVICE: 05/23/2019 PRIMARY CARE PHYSICIAN: Alexandra Hsieh MD CHIEF COMPLAINT: The pain is increasing somewhat and is not well controlled. HISTORY: The patient is a 39-year-old female who has been followed in the pain clinic. As you may recall, she suffers from low back pain and does have bilateral hip pain. She has a history of sacroiliac joint dysfunction. She has noticed that her pain has increased. The weather has become more problematic in the winter. Over the last 3 weeks, she has noticed that her pain has been more problematic. She has experienced more lower back pain with pain that is radiating down into her right leg. She has had epidural steroid injections. She has more pain in the SI joint. Two weeks ago, the pain was quite problematic. She has tried other medications to help control the pain in the past. Use of Lyrica caused significant weight gain. She has not been able to take Neurontin because of a similar problem. She notes that her pain has been quite problematic and has been bad approximately 3 times per week. She has tried other medications such as Elavil and trazodone and not found those particularly helpful. ALLERGIES: No known drug allergies. CURRENT MEDICATIONS: Biotin 250 mcg daily, Flexeril 10 mg t.i.d., Claritin 10 mg, Bystolic 10 mg, Percocet 5/325 mg, vitamin E, multivitamins, B complex injection, tramadol, phentermine 37.5 mg, hydrochlorothiazide, and meloxicam 15 mg. PAIN CLINIC ASSESSMENT AND PQRS: 1. The patient is not being treated for osteoarthritis or rheumatoid arthritis. The patient does have some sacroiliac joint dysfunction history. 2. Height 5 feet 9 inches, weight 315 pounds, and BMI is 46. 3. Vital signs: Blood pressure is 161/112, heart rate 86, respiratory rate 16, room air saturation is 97%, temperature 98.2, second blood pressure 150/92, and pain intensity 8/10. 4. Fall history: The patient has not fallen in the last 3 months. 5. Blood thinner: The patient is not on a blood thinning medication. 6. Hypertension: The patient is not being treated for hypertension. 7. Risk assessment tool: [place] [address] PAIN MANAGEMENT CONSULTATION Name: RUBIO MATHIAS Room: [facility]#: [id number] Admission: 05/23/19 Attend Phys: Princess Spring MD Discharge: Date of : 80 Report #: [id number] 8. Functional assessment tool. 9. Recreational drug use: The patient denies. 10. Tobacco: The patient denies use of tobacco. 11. Alcohol: The patient rarely uses alcoholic beverages. PHYSICAL EXAMINATION: GENERAL: The patient is a well-developed and well-nourished white female. She appears her stated age. She is alert and oriented x 3. Her affect is appropriate. Speech is fluent. HEENT: Normocephalic and atraumatic. Extraocular eye muscles intact. Sclerae nonicteric. Mucous membranes are moist. NECK: Without adenopathy or JVD. HEART: Regular rate. ABDOMEN: Nontender. Bowel sounds present. EXTREMITIES: The patient has some tattoos on the extremities. Upper extremity muscle strength judged to be 5/5 for the major muscle groups in the upper extremities. Lower extremity, the patient has pain and discomfort in her low back area. She has pain in her hips bilaterally as well as in the SI joint areas. Muscle strength judged to be 5/5 for the major muscle groups in the upper extremities. IMPRESSION: 1. Chronic low back pain and bilateral hip pain. 2. History of sacroiliac joint pain with sacroiliitis. RECOMMENDATIONS: We discussed treatment options with the patient. At this juncture, she feels her pain has increased. She would like to increase the Percocet by one tablet. She feels that her pain has helped 30-50% using her current medications. The weather has changed. She has noticed increased pain and discomfort with walking, sitting, standing, and activities of daily living. We will continue with the patient's current medical regimen of Percocet 5 mg one p.o. q. 4-6 hours. The patient will have an increase of 10 tablets over the month to help with the worst days of pain. She will go from 120 tablets to 130. She will continue with her muscle relaxant Flexeril 10 mg b.i.d. The patient will also monitor her GI tract. She will continue with meloxicam 15 mg. This nonsteroidal anti-inflammatory medication can be problematic in some people and cause GI problems. She will call us if she has any concerns. We would like to thank you for letting us participate in her care. We hope she continues to improve. By: [id number]. MD citlali Bravo
== END ==
LOC: M.PC 04:26
DX: M54.5 Low back pain (principal); M25.551 Pain in right hip; M25.552 Pain in left hip

== ENCOUNTER → 2019-08-15 | Outpatient (CLI) | payer OTHER ==
--- NOTE | 2019-08-23 08:25 | PAINCON ---
[address] [address] PAIN MANAGEMENT CONSULTATION Name: RUBIO MATHIAS FORTUNATO Room: [facility].#: [id number] Admission: 08/15/19 Attend Phys: Princess Spring MD Discharge: Date of : 80 Report #: [id number] THIS REPORT FOR: //name// cc: Alexandra Hsieh MD, Katrina MD THIS REPORT FOR: //name// CC: Alexandra Spring DATE OF SERVICE: 08/15/2019 CHIEF COMPLAINT: Pain in the lower back as well as down in the right buttocks and right leg with some shooting discomfort. HISTORY: The patient is a 39-year-old female who has been followed in the pain clinic. As you may recall, she suffers from low back pain and bilateral hip discomfort. She has a history of sacroiliac joint dysfunction. She returns today and states that her pain is a 4/10. She continues to have pain in the lower portion of her back. It radiates down the right buttocks and into the right leg. She does note some shooting pain in this area on occasion as well. She feels that her medications continue to be beneficial. She remains gainfully employed. She has noticed that with her change of job and less physical activity she is having less pain. Overall, she feels that the medications are working reasonably well. She is about 50% improved. Pain is still problematic with walking, sitting, standing, going from a sitting to a standing position. ALLERGIES: No known drug allergies. CURRENT MEDICATIONS: Biotin 250 mcg daily, Flexeril 10 mg t.i.d., Claritin 10 mg, Bystolic 10 mg, Percocet 5/325, vitamin E, multivitamins, B complex injection, tramadol, and phentermine 37.5, hydrochlorothiazide, and meloxicam 15 mg. PAIN CLINIC ASSESSMENT/PQRS: 1. The patient is not being treated for osteoarthritis or rheumatoid arthritis. 2. The patient does have some sacroiliac joint dysfunction history. 3. Height 5 feet 9 inches, weight 304 pounds, BMI is 45. 4. Vital Signs: Blood pressure 150/99, heart rate 80, respiratory rate 16, room air saturation 99%, temperature is 97.4. 5. Pain intensity 10. 6. Fall history: The patient has not fallen in the last 3 months. 7. Blood thinner. The patient is not on a blood thinning medication. 8. Hypertension. The patient is not being treated for hypertension. 9. Risk assessment tool, [place] [address] PAIN MANAGEMENT CONSULTATION Name: RUBIO MATHIAS Room: [facility]#: [id number] Admission: 08/15/19 Attend Phys: Princess Spring MD Discharge: Date of : 80 Report #: [id number] 10. Functional assessment tool reviewed. 11. Recreational drug use: The patient denies. 12. Tobacco: The patient denies. 13. Alcohol. The patient rarely drinks alcoholic beverages. PHYSICAL EXAMINATION: GENERAL: The patient is a well-developed, well-nourished white female. Appears her stated age. She is alert and oriented x 3. Her affect is appropriate. Speech is fluent. HEENT: Normocephalic, atraumatic. Extraocular eye muscles intact. Sclerae nonicteric. Mucous membranes are moist. NECK: Without adenopathy or JVD. ABDOMEN: Nontender. Bowel sounds present. EXTREMITIES: Upper extremity muscle strength, the patient has some tattoos in the upper extremity. Muscle strength judged to be 5/5 for the major muscle groups in the upper extremity. The patient has pain and discomfort in her hips bilaterally as well as pain in the SI joint areas. IMPRESSION: 1. Chronic low back pain with bilateral hip pain. 2. History of sacroiliac joint dysfunction and sacroiliitis. RECOMMENDATIONS: We discussed treatment options with the patient. At this juncture, we will continue with her medication. She finds that the medications continue to be helpful. She will continue with the cyclobenzaprine medication 10 mg b.i.d. for muscle spasms. She will also continue with meloxicam 15 mg for anti-inflammatory medication. She will use the oxycodone as a medication to help with the pain and discomfort. She is aware that the opioid medications can become less effective. We have had that conversation before. She is aware that opioid medications can cause some patients to develop addiction. She has not shown any signs of addiction. She has taken her medications and getting it from one source. She is staying gainfully employed. She would like to have her medications renewed. A script for her medications of Flexeril 10 mg 1 p.o. b.i.d. has been written for the next 3 months. She will continue with the meloxicam 15 mg daily for the next 3 months. The patient has been given oxycodone 5 mg 1 p.o. every q. 6 hours p.r.n., total of 130 tablets per month for the next 3 months. We would like to thank you for letting us participate in her care. We hope she continues to improve. <ELECTRONICALLY SIGNED> By: Princess Spring MD 08/23/19 0825 1530 1636N. Clifton Spring MD /SALEEM
== END ==
LOC: M.PC 07:54
DX: M54.5 Low back pain (principal); M25.551 Pain in right hip; M25.552 Pain in left hip

== ENCOUNTER → 2019-11-07 | Outpatient (CLI) | payer OTHER ==
[~2019-11-07] MED LIST changes: +KAPSPARGO SPRIN25 MG PO
--- NOTE | 2019-11-08 08:41 | PAINCON ---
[address] [address] PAIN MANAGEMENT CONSULTATION Name: RUBIO MATHIAS Room: [facility].#: [id number] Admission: 11/07/19 Attend Phys: Princess Spring MD Discharge: Date of : 80 Report #: [id number] THIS REPORT FOR: //name// cc: Alexandra Hsieh MD, Katrina MD ~ THIS REPORT FOR: //name// CC: Alexandra Spring DATE OF SERVICE: 11/07/2019 CHIEF COMPLAINT: "Continued low back and right hip pain, it is somewhat better. It is not going down my leg is much." HISTORY: The patient is a 39-year-old female who has been followed in the pain clinic because of chronic back and right hip pain. She rates her pain as a 7/10. She does have a new grandchild. She was born on 08/23/2019. She notes that she is continuing to lift and care for the child. She feels this may be one of the reasons she has noted some increased pain and discomfort in the right hip and low back area. She also attributes her improved pain condition to the change in her job. She is not doing some of the activities associated with her previous job. She has noticed an improvement in her pain since her Percocet dose was increased. She notes that pain continues to be problematic when she is walking, sitting, standing, going up and down stairs, lifting. She does not have any problems with her medications. She is wearing a mask because of the COVID-19 pandemic. She has returned today with a desire to have her medications renewed. ALLERGIES: No known drug allergies. CURRENT MEDICATIONS: Biotin 250 mcg daily, Flexeril 10 mg t.i.d., Claritin 10 mg, Bystolic 10 mg, Percocet 5/325, vitamin E, multivitamins, B complex injection, tramadol, phentermine 37.5, hydrochlorothiazide, and meloxicam 15 mg. PAIN CLINIC ASSESSMENT AND PQRS: 1. The patient is not being treated for osteoarthritis or rheumatoid arthritis. The patient does have some sacroiliac joint dysfunction history. 2. Height 5 feet 9 inches, weight 307 pounds, BMI is 45. 3. Vital Signs: Blood pressure 150/99, heart rate 76, respiratory rate 16, room air saturation 97%, temperature 97.9. 4. Pain intensity 7/10. 5. Fall history: The patient has not fallen in the last 3 months. 6. Blood thinner. The patient is not on a blood thinning medication. 7. Opioids. The patient receives medication from the pain clinic. 8. Functional [place] [address] PAIN MANAGEMENT CONSULTATION Name: RUBIO MATHIAS Room: [facility]#: [id number] Admission: 11/07/19 Attend Phys: Princess Spring MD Discharge: Date of : 80 Report #: [id number] 9. Recreational drug use. The patient denies. 10. Tobacco: The patient denies. 11. Alcohol. The patient rarely drinks alcoholic beverages. PHYSICAL EXAMINATION: GENERAL: The patient is a well-developed, well-nourished white female. Appears her stated age. She is alert and oriented x 3. Her affect is appropriate. Speech is fluent. HEENT: Normocephalic, atraumatic. Extraocular eye muscles intact. Sclerae are nonicteric. The patient is wearing a mask. NECK: Without adenopathy or JVD. SKIN: The patient has tattoos on both arms sleeve. ABDOMEN: Nontender. Bowel sounds present. EXTREMITIES: Upper extremity muscle strength judged to be 5/5 for the major muscle groups in the upper extremity. Lower extremity muscle strength 5/5 for the major muscle groups in the lower extremity. The patient has some discomfort in the low back area near her right hip and less pain down into the right leg. IMPRESSION: 1. Chronic low back pain with bilateral hip pain. 2. History of sacroiliac joint dysfunction and sacroiliitis. RECOMMENDATIONS: We discussed treatment options with the patient. At this juncture, we will continue with her medications. Risks and benefits of opioid medications were again discussed. The patient is aware that they may become less effective as time goes along with the development of tolerance. She has taken the medication as prescribed. She keeps her medications locked up. She feels that her pain is about 50% improved with current medical regimen. We will continue with her medications. A script for morphine sulfate 15 mg 1 p.o. t.i.d. has been provided. The patient will also continue with oxycodone 7.5 mg one p.o. every 4-6 hours p.r.n. The patient will call us if she has any problems with her medications. She is happy to have a new grandchild. She finds that this increased activity may be contributing to the uptake in the pain score. <ELECTRONICALLY SIGNED> By: Princess Spring MD 11/08/19 0841 0906 1540N. Clifton Spring MD /nt
== END ==
LOC: M.PC 03:55
PROVIDERS: ATTEND Anesthesiology Pain Medicine
DX: M54.5 Low back pain (principal); M25.551 Pain in right hip; M25.552 Pain in left hip; Z87.39 Personal history of other diseases of the musculoskeletal system and connective tissue

== ENCOUNTER → 2020-02-06 | Outpatient (CLI) | payer OTHER ==
--- NOTE | 2020-02-09 12:58 | PAINCON ---
[address] [address] PAIN MANAGEMENT CONSULTATION Name: RUBIO MATHIAS Room: [facility].#: [id number] Admission: 02/06/20 Attend Phys: Princess Spring MD Discharge: Date of : 80 Report #: [id number] THIS REPORT FOR: //name// cc: Alexandra Hsieh MD, Katrina MD ~ THIS REPORT FOR: //name// CC: Alexandra Spring DATE OF SERVICE: 02/06/2020 CHIEF COMPLAINT: Back pain and hip pain. HISTORY: The patient is a 39-year-old female who has been followed in the pain clinic because of chronic pain. She continues to have pain, which is problematic in the left lower back. It also involves her left hip. Rates her pain as a 5/10. She has returned to the pain clinic for renewal of her medications. She feels that these medications have been beneficial. She has had surgery for carpal tunnel in her left as well as the right wrist. One surgery was in November and the second surgery was in December. Overall, these things were healing and she feels that things are going reasonably well. She feels that her medications continue to be helpful. She does note that the pain can be problematic with certain activities of daily living such as walking, sitting, standing, climbing stairs. She rates her pain as a 5/10. She has had no complications with their use. She is wearing a mask and socially isolating as much as possible secondary to COVID-19. Her son who is about 15 years of age is returning to school. He is in-person 2 days a week. He does not like the distance learning. ALLERGIES: No known drug allergies. CURRENT MEDICATIONS: Biotin 250 mcg daily, Flexeril 10 mg t.i.d., Claritin 10 mg, Bystolic 10 mg, Percocet 5/325, vitamin E, multivitamins, B complex injection, tramadol, phentermine 37.5, hydrochlorothiazide, meloxicam 15 mg. PAIN CLINIC ASSESSMENT AND PQRS: 1. The patient is not being treated for osteoarthritis or rheumatoid arthritis. The patient does have some pain and discomfort in the sacroiliac joint. Because of dysfunction. 2. Height 5 feet 9 inches, weight 328 pounds, BMI is 48.5. 3. Vital Signs: Blood pressure 160/114, heart rate 88, respiratory rate 16, room air saturation 96%, temperature 97.2. 4. Pain intensity 5/10. 5. Fall history: The patient has not fallen in the last 3 months. 6. Blood thinner. The patient is not on [place] [address] PAIN MANAGEMENT CONSULTATION Name: RUBIO MATHIAS Room: [facility]#: [id number] Admission: 02/06/20 Attend Phys: Princess Spring MD Discharge: Date of : 80 Report #: [id number] 7. Opioids. The patient receives medication from one source the pain clinic. 8. Functional assessment tool reviewed. 9. Recreational drug use. The patient denies. 10. Tobacco: The patient denies. 11. Alcohol: The patient rarely drinks alcoholic beverages. PHYSICAL EXAMINATION: GENERAL: The patient is a well-developed, well-nourished white female. Appears her stated age. She is alert and oriented x 3. Her affect is appropriate. Speech is fluent. HEENT: Normocephalic, atraumatic. Extraocular eye muscles intact. The patient is wearing a facial covering. NECK: Without adenopathy or JVD. SKIN: Has two tattoos on both arms. ABDOMEN: Nontender. Bowel sounds present. MUSCULOSKELETAL: Upper extremities, muscle strength judged to be 5/5 for the major muscle groups in the upper extremity. Lower extremity muscle strength judged to be 5/5 for the major muscle groups in the lower extremity. The patient has some pain and discomfort in lower portion of her back and in the left hip area. The patient has well-healing scars in the area of the left and right wrist because of carpal tunnel surgery. IMPRESSION: 1. Chronic low back pain with bilateral hip pain. 2. History of sacroiliac joint dysfunction and scoliosis. The patient feels that her medications are helpful. She continues to take them as prescribed. She is not having any complications. She is aware that opioid medications can become less effective as time goes on because of development of tolerance. Overall, she feels that things are going reasonably well and would like to keep her medication. She feels that there is at least 50% improvement with her medications. She has a young son who is 15. He is concerned about going to school. We introduced her to a program called [employer]. It's an online program to help her son with didactics, making time at home a more pleasant semester for him. We would like to thank you for letting us participate in her care. She continues to improve. She will call us if she has any concerns. <ELECTRONICALLY SIGNED> By: Princess Spring MD 02/09/20 1258 [id number] 1556N. Clifton Spring MD /PMT
== END ==
LOC: M.PC 07:44
PROVIDERS: ATTEND Anesthesiology Pain Medicine
DX: M25.552 Pain in left hip (principal); M54.5 Low back pain

== ENCOUNTER → 2020-04-30 | Outpatient (CLI) | payer OTHER | LOC: M.PC 07:43 | PROVIDERS: ATTEND Anesthesiology Pain Medicine | DX: M54.5 Low back pain (principal); M25.551 Pain in right hip; G89.29 Other chronic pain; M25.552 Pain in left hip ==

== ENCOUNTER → 2020-07-23 | Outpatient (CLI) | payer OTHER | LOC: M.PC 07:58 | PROVIDERS: ATTEND Anesthesiology Pain Medicine | DX: M54.5 Low back pain (principal); G89.29 Other chronic pain; M25.551 Pain in right hip; M25.552 Pain in left hip; Z87.39 Personal history of other diseases of the musculoskeletal system and connective tissue; I10 Essential (primary) hypertension; Z88.8 Allergy status to other drugs, medicaments and biological substances; Z79.899 Other long term (current) drug therapy ==

== ENCOUNTER → 2020-10-15 | Outpatient (CLI) | payer OTHER ==
[~2020-10-15] MED LIST changes: +AMITRIPTYLINE H10 M1 PO
== END ==
LOC: M.PC 07:35
PROVIDERS: ATTEND Anesthesiology Pain Medicine
DX: M54.5 Low back pain (principal); I10 Essential (primary) hypertension; M25.551 Pain in right hip; M25.552 Pain in left hip; Z79.891 Long term (current) use of opiate analgesic; Z79.899 Other long term (current) drug therapy